=== PATIENT | male | born 1940 | race Caucasian/White ===

== ENCOUNTER 2017-07-23 22:00 | Emergency (ER) | payer MEDICARE, OTHER ==
--- NOTE | ~2017-07-23 | ER ---
ADMIT: 07/23/2017 RM/LOC: ER [facility] MR#: [id number] [address] [address] LAUREN RADFORD Dust[address] [place] [address] Emergency Room Report SEX: M AGE: 77 : 1940 DATE: 07/23/2017 ADDENDUM: A 77-year-old male, who is diagnosed with a PE 3 days ago. He is on Xarelto, comes in complaining of shortness of breath. It came on acutely just prior to arrival and lasted about 10 to 15 minutes and now resolved. He had a similar episode yesterday evening, but was not quite as long at that time. He actually states he has been getting up walking around the house without difficulty and not being more short of breath than his baseline. He denies any chest pain. He does not have any cough or cold symptoms. I did check an ABG here, which did not show any acute abnormalities. BNP was normal, and troponin was not elevated. An EKG was done, which shows abnormal R-wave progression, otherwise no signs of ST elevation. His vital signs were fine while he was in the ER, and his oxygen saturation was in the high 90s. He returned down to room air. I do believe he is having some anxiety. I did give him a dose of Xanax here, and I have discussed the case with Dr. Varner, his primary care physician. We will get the patient a prescription for Xanax and have him follow up as scheduled in [address] Varner's office. DIAGNOSES: 1. Pulmonary embolism. 2. Anxiety. 3. Shortness of breath. Chetan Hung MD/ marcell JOB #: [id number] CC: Chetan Hung MD, Attending Physician Faustino Varner MD, Family Physician
[~2017-07-23 22:00] MED LIST: ANORO ELLIPTA 62.1 - IH; ASPIR 8181 MG PO; CENTRUM SILVER1 EAC1 PO; CLOPIDOGREL75 MG PO; COZAAR DPS25 MG PO; DONEPEZIL HCL10 MG PO; FLOMAX DPS0.4 MG PO; METOPROLOL SUCC25 MG PO; SIMVASTATIN40 MG PO; VITAMIN B-121000 MCG PO; VITAMIN D35000 UNI1 PO; ZYRTEC DPS10 MG PO
== END 2017-07-24 01:20 | disposition home or self-care (01) ==
LOC: ER 22:00
DX: I26.99 Other pulmonary embolism without acute cor pulmonale (principal); F41.9 Anxiety disorder, unspecified; J45.909 Unspecified asthma, uncomplicated; I25.10 Atherosclerotic heart disease of native coronary artery without angina pectoris; I50.9 Heart failure, unspecified; Z95.1 Presence of aortocoronary bypass graft; Z95.5 Presence of coronary angioplasty implant and graft; Z98.890 Other specified postprocedural states; Z88.8 Allergy status to other drugs, medicaments and biological substances; Z79.01 Long term (current) use of anticoagulants; Z79.82 Long term (current) use of aspirin; Z79.899 Other long term (current) drug therapy

== ENCOUNTER 2017-07-25 10:37 | Observation (INO) | payer MEDICARE, OTHER ==
[~2017-07-25] VITALS: Ht 180.3 cm; Wt 100.2 kg
--- NOTE | ~2017-07-25 | ECH ---
Transthoracic Echocardiography Report (TTE) Demographics Patient Name LAUREN RADFORD Date of Study 07/25/2017 Patient Number [id number] Visit Number [id number] Date of 1940 Room Number 424 Accession Number [id number] Gender Male Age 77 year(s) Referring Ashish Oreilly Cuff Runner Yokasta Hickman [facility] Physician Physician Interpreting King Ryan Corrigan MD Trust Administrative Assistant Physician Supervising Ordering Physician Chris De Leon APRN, MD/MLP Nurse Stress Spare Person Conclusions Summary Technically difficult exam to perform with patient supine and left shoulder/arm immobilizer in place. Images obtained are fair quality. Diastolic assessment reveals Grade I diastolic dysfunction. The left atrium is mildly dilated by LA volume index measurement. Bubble study was done, there is no evidence for a PFO or ASD. The right atrium is mildly dilated. Procedure Type of Study TTE procedure:Echo Complete SF. Procedure Date Date: 07/25/2017 Start: 01:40 PM Technical Quality: Limited visualization due to patient immobility. Indications:Syncope. Additional Indications:orthostatic hypotension Appropriate Use Criteria: 9 Contrast Medium: Bubble Study. Height: 71 inches Weight: 221 pounds BSA: 2.2 m Rhythm: Within normal limits HR: 72 bpm BP: 92/58 mmHg M-Mode/2D Measurements LV Diastolic Dimension: 5.62 cm LV Septum Diastolic: 0.94 cm AO Root Dimension: 3.07 cm LV PW Diastolic: 1.03 cm Cardiac Output: 6.12 l/min LA volume: 71.52 ml Cardiac Index: 2.78 l/min*m LVOT: 2.15 cm LVOT VTI: 23.42 cm RV Base: 3.7 cm LV Stroke volume: 84.98 ml RV Mid: 2.2 cm LV Stroke volume index: 38.63 ml/m RV Length: 7.3 cm TAPSE: 1.7 cm TDI-S': 11 cm/s Doppler Measurements AV Peak Velocity: 1.12 m/s MV Peak E-Wave: 0.75 m/s AV Peak Gradient: 4.98 mmHg MV Peak A-Wave: 1.1 m/s AV Mean Gradient: 2.88 mmHg MV E/A Ratio: 0.68 LVOT Peak Velocity: 0.96 m/s MV P1/2t: 54.1 msec AV Area (Continuity):3.66 cm MV Deceleration Time: 157.5 msec MV Area (PHT): 4.07 cm E' Septal Velocity: 0.09 m/s E' Lateral Velocity: 0.14 m/s RA Area: 22.15 cm Findings Left Ventricle The left ventricle is normal in size . Diastolic assessment reveals Grade I diastolic dysfunction. Right Ventricle Normal right ventricle structure and function. Left Atrium The left atrium is mildly dilated by LA volume index measurement. Bubble study was done, there is no evidence for a PFO or ASD. Right Atrium The right atrium is mildly dilated. Mitral Valve Normal mitral valve structure and function. Aortic Valve Normal aortic valve structure and function. Tricuspid Valve Normal tricuspid valve structure and function. Pulmonic Valve The pulmonic valve is not well visualized. Pericardial Effusion No evidence of pericardial effusion. Miscellaneous Visualized portions of the aortic root and ascending aorta appear normal in size. Pleural Effusion No evidence of pleural effusion. Signature
[~2017-07-25 10:37] MED LIST changes: -ASPIR 8181 MG PO; -CENTRUM SILVER1 EAC1 PO; -DONEPEZIL HCL10 MG PO; -FLOMAX DPS0.4 MG PO; -VITAMIN B-121000 MCG PO; -VITAMIN D35000 UNI1 PO; -ZYRTEC DPS10 MG PO
[2017-07-27] MEDS ORDERED: VITAMIN D35000 UNI1 PO (20:05)
[2017-07-27] MEDS ORDERED: ASPIR 8181 MG PO (20:05)
[2017-07-27] MEDS ORDERED: VITAMIN B-121000 MCG PO (20:05)
[2017-07-27] MEDS ORDERED: CENTRUM SILVER1 EAC1 PO (20:05)
[2017-07-27] MEDS ORDERED: FLOMAX DPS0.4 MG PO (20:06)
[2017-07-27] MEDS ORDERED: METOPROLOL TART25 MG PO (20:06)
[2017-07-27] MEDS ORDERED: DONEPEZIL HCL10 MG PO (20:07)
[2017-07-27] MEDS ORDERED: ZYRTEC DPS10 MG PO (20:07)
[2017-07-27] MEDS ORDERED: NAMENDA10 MG PO (20:08)
[2017-07-27] MEDS ORDERED: XANAX DPS0.25 MG PO (20:08)
[2017-07-27] MEDS ORDERED: LIPITOR40 MG PO (20:08)
[2017-07-27] MEDS ORDERED: THERAPEUTIC MUL1 TAB PO (20:09)
[2017-07-27] MEDS ORDERED: ACCUNEB DP0.63 MG/3 IH (20:09)
[2017-07-27] MEDS ORDERED: PROAIR RESPICL90 MCG IH (20:09)
[2017-07-27] MEDS ORDERED: XARELTO15 MG PO (20:10)
--- NOTE | 2017-07-28 10:08 | HP ---
ADMIT: 07/25/2017 RM/LOC: [address] [facility] MR#: [id number] [address] [facility] [address] [place], [place] [address] LAUREN DENNEY [address] [place] [address] History and Physical SEX: M AGE: 77 : 1940 DATE OF SERVICE: CHIEF COMPLAINT: Presyncope. HISTORY OF PRESENT ILLNESS: Mr. Denney is a very pleasant, 77-year-old man. He has a past medical history significant for history of coronary artery disease, obstructive sleep apnea, memory loss, diabetes, chronic diastolic CHF, and paroxysmal atrial fibrillation, who presented to the clinic today with a complaint of presyncope. Of note, he had his total left shoulder surgery done on 07/15/2017. Then on 07/20, he had gone in to the ER and had acute shortness of breath. A CTA at that time, showed a small left upper lobe pulmonary embolism. He was started on Xarelto and was sent home. He then returned on 07/23 with kind of shortness of breath. At that time, they did a pretty extensive workup and everything looks really good and sent him home. He came into the office today and said he has been having these episodes where when he stands, he feels like he is going to black out. He reports he is still short of breath, but now that seems to be better. He really denies any other complaints, just this slight weakness and inability to get up and move around very freely. He normally is a pretty active jr. PAST MEDICAL HISTORY: Significant for: 1. History of coronary artery disease status post PCI x4, most recently in 2009 and a CABG in 1999. 2. Shoulder injury. 3. Paroxysmal atrial fibrillation. 4. BPH. 5. Chronic diastolic CHF. 6. Diabetes mellitus. 7. Hypertension. 8. Mixed hyperlipidemia. 9. Obstructive sleep apnea, on CPAP. 10.History of memory loss. 11.COPD. 12.He is also status post right total knee arthroplasty. MEDICATIONS: Currently are: 1. Albuterol. 2. Atorvastatin 40 mg p.o. daily. 3. Cetirizine 10 mg p.o. daily. 4. Vitamin D. 5. Aricept 10 mg p.o. daily. 6. Losartan 25 mg p.o. daily. 7. Namenda 10 mg p.o. b.i.d. 8. Lopressor 12.5 p.o. b.i.d. 9. Multivitamin p.o. daily. 10.Spironolactone 25 mg p.o. daily. 11.Flomax 0.4 p.o. daily. 12.Aspirin 162 mg p.o. daily. 13.Plavix 75 mg p.o. daily. ADMIT: 07/25/2017 RM/LOC: [address] [facility] MR#: [id number] [address] [address] [place] [address] History and Physical SEX: M AGE: 77 : 1940 SOCIAL HISTORY: He is . He is a former smoker, smoked for 30 years. He does not use any significant alcohol. FAMILY HISTORY: Positive for heart disease in his mother, father, sister, and brother as well as hyperlipidemia in his family. REVIEW OF SYSTEMS: Obtained, was otherwise essentially negative. PHYSICAL EXAMINATION: GENERAL: He is alert and oriented, in no apparent distress. HEENT: Pupils are equal, round, and reactive. Oropharynx has dry mucous membranes. NECK: Supple. HEART: Normal rate with a regular rhythm. He does have his left arm in a shoulder immobilizer. LUNGS: Relatively clear to auscultation. ABDOMEN: Soft. Bowel sounds are present. EXTREMITIES: Have no evidence of edema. ASSESSMENT AND PLAN: 1. Presyncope. At this time, he seems to be somewhat dehydrated. We will go ahead and just give him some IV fluids and recheck his orthostatics. We will also check an echocardiogram and a CT of his head. We will go ahead and check just some labs including a CK-MB, troponin I, and BNP. 2. Orthostasis. 3. Recent diagnosis of pulmonary embolism. We will continue his Xarelto, but we will plan to hold his Plavix with his Xarelto. 4. Coronary artery disease. 5. Diabetes mellitus. Otherwise, we will follow along. Danni Hinojosa MD/ marcell JOB #: [id number] CC: Faustino Varner, Attending Physician Faustino Varner, Family Physician
== END 2017-07-26 15:30 | disposition home or self-care (01) ==
LOC: 4PCU 10:37
PROVIDERS: ADMIT Internal Medicine
DX: R55 Syncope and collapse (principal); I25.10 Atherosclerotic heart disease of native coronary artery without angina pectoris; I26.99 Other pulmonary embolism without acute cor pulmonale; E11.9 Type 2 diabetes mellitus without complications; E86.0 Dehydration; E78.2 Mixed hyperlipidemia; I11.0 Hypertensive heart disease with heart failure; I48.0 Paroxysmal atrial fibrillation; I50.32 Chronic diastolic (congestive) heart failure; G47.33 Obstructive sleep apnea (adult) (pediatric); J44.9 Chronic obstructive pulmonary disease, unspecified; N40.0 Benign prostatic hyperplasia without lower urinary tract symptoms; Z23 Encounter for immunization; Z99.89 Dependence on other enabling machines and devices; Z79.899 Other long term (current) drug therapy; Z79.52 Long term (current) use of systemic steroids; Z79.82 Long term (current) use of aspirin; Z79.01 Long term (current) use of anticoagulants; Z98.890 Other specified postprocedural states